=== PATIENT | male | born 1960 | race Caucasian/White ===

== ENCOUNTER 2017-03-29 07:48 | Emergency (ER) | payer BC, OTHER ==
[~2017-03-29] VITALS: Ht 167.6 cm; Wt 93.0 kg
[~2017-03-29 07:48] MED LIST: ACET50TA PO; ASPI81CH32 PO; ASPI81TA85 PO; BACT800T5 PO; CARV12.5 PO; CLIN1CAP5 PO; CORE12.5 PO; CRES20TA PO; NORCOTAB PO; OMEP40CA2 PO; PERCOCET PO; PLAV75TA38 PO; PLAVIX PO; PRAV80TA2 PO; TYLE325T5 PO; ULTR50TA PO
[2017-03-29] MEDS ORDERED: RANO5TAB PO (08:20)
[2017-03-29] MEDS ORDERED: KETOROLAC 30 MG/ML VIAL (J1885) IV ONE (08:45)
[2017-03-29] MEDS ORDERED: CLINDAMYCIN 900 MG in APPROPRIATE DILUENT 1 EA IV ONE (08:45)
[2017-03-29 09:20] LABS: BASO % 0.4 % (0.0-1.0); EOS # 0.3 K/mm3 (0.0-0.50); EOS % 2.5 % (0.0-3.0); LARGE UNSTAINED CELL # 0.2 K/mm3 (0.0-0.4); LARGE UNSTAINED CELL % 1.3 % (0.0-4.0); LYMPH # 1.2 K/mm3 (1.5-4.5); LYMPH % 9.8 % (24.0-44.0); MEAN CORPUSCULAR HEMOGLOBIN 30.9 pg (27.0-33.0); MEAN CORPUSCULAR VOLUME 90.8 fl (80.0-96.0); MONO # 0.5 K/mm3 (0.0-0.8); MONO % 3.7 % (0.0-5.0); NEUTROPHILS # 10.1 K/mm3 (1.8-7.7); NEUTROPHILS % 82.3 % (36.0-66.0); PLATELET COUNT, AUTOMATED 177 k/mm3 (150-450); RED CELL DISTRIBUTION WIDTH 13.1 % (11.5-14.5); WHITE BLOOD COUNT 12.3 K/mm3 (4.0-10.0)
[2017-03-29] MEDS ORDERED: NS 500 ML IV ONE (09:30)
[2017-03-29 09:42] LABS: ANION GAP 9 MEQ/L (8-16); BLOOD UREA NITROGEN 12 MG/DL (7-18); CALCIUM LEVEL 8.9 MG/DL (8.5-10.1); CARBON DIOXIDE LEVEL 25 MEQ/L (21-32); CHLORIDE LEVEL 101 MEQ/L (98-107); CREATININE FOR GFR 0.87 MG/DL (0.70-1.30); GLOMERULAR FILTRATION RATE > 60.0 (>56); GLUCOSE, FASTING 123 MG/DL (70-105); POTASSIUM SERUM 3.8 MEQ/L (3.5-5.1); SODIUM LEVEL 135 MEQ/L (136-145)
--- NOTE | 2017-03-29 10:15 | REP ---
Clinical: Left inguinal pain/mass. Technique: Real time kathleen scale and color evaluation using linear high frequency transducer. Findings: Directed ultrasound examination of the left inguinal canal and groin demonstrates diffuse edema and enlarged lymph nodes measuring 2.6 cm diameter as well as complex fluid collections in the subcutaneous tissue with gas measuring 1.4 x 0.8 x 1.5 cm with possible fistulous connection to a deeper collection measuring 2.6 x 1.5 x 0.4 cm. Impression: Edema and adenopathy with complex fluid collections suggesting abscess and phlegmon. Signed by Quincy Espinal MD 03/29/2017 10:07 A
[2017-03-29 12:22] VITALS: BP 115/66
[2017-03-29] MEDS ORDERED: CLEO300C2 PO (13:30)
[2017-03-29] MEDS ORDERED: NORCOTAB PO (13:30)
[2017-03-29] MEDS ORDERED: BACT800T5 PO (13:37)
--- NOTE | 2017-03-30 05:35 | CR ---
DATE OF CONSULTATION: 03/29/2017 REASON FOR CONSULTATION: Left thigh cellulitis and possible abscess. HISTORY OF PRESENT ILLNESS: The patient is a 56-year-old man who presented to the emergency department at approximately 7:48 in the morning of March 29. He presented complaining of pain in his left thigh and groin area. He reported that he had developed an infection in the left groin area beginning on or about MondayMarch 26. He described having a small pimple like lesion appear. He squeezed some small amount of yellowish matter out of it. He noticed increasing redness and swelling over the next three days. He reported having a sensation of chills on the night of March 28. He reported that he had a previous infection in the left groin area about two years ago that required an incision and drainage. He was seen in the emergency department and because of some induration he underwent an ultrasound of the area just below the inguinal ligament. This suggested a possible fluid collection and I was asked to evaluate the patient regarding the need for incision and drainage. ALLERGIES: The patient reports allergies to IODINE, PENICILLINS and PENICILLIN-RELATED MEDICATIONS. MEDICATIONS: His current medications include: - Plavix 75 mg by mouth daily - aspirin 81 mg by mouth daily - carvedilol 12.5 mg by mouth twice a day - ranolazine 500 mg by mouth twice a day PAST SURGICAL HISTORY: His surgical history is significant for a previous incision and drainage of the left upper thigh and groin area in 2014. He has had a coronary stent placed. He had an umbilical hernia repaired. PAST MEDICAL HISTORY: Medical history is significant for a history of gastroesophageal reflux. He has a history of coronary artery disease and has had stents. He has hypertension and hypercholesterolemia. SOCIAL HISTORY: The patient is a former smoker. REVIEW OF SYSTEMS: Reveals no current chest pain or palpitations. He has no shortness of breath or wheezing. He is not having any abdominal pain. Remainder of the review of systems is unremarkable. PHYSICAL EXAMINATION: Physical exam reveals a pleasant man lying quietly on the emergency room (ER) stretcher. Examination is limited to the left lower extremity. Examination shows an area approximately 25 cm in length x 15 cm in width of redness extending down the anterior thigh beginning just at the inguinal crease. About 3-4 cm below the inguinal crease, there is an area of mild induration or subcutaneous nodularity about 4 cm in length x 2.5 cm in width. With palpation just inferior to this, there is a very small pore identified in the skin from which a few small droplets of turbid yellowish fluid can be expressed. There is no fluctuance identified. Throughout the rest of the reddened area, the skin and subcutaneous tissues are much more supple and not indurated. LABORATORY DATA: The patient's laboratory studies show a white count of 12.3 with a differential showing 82% neutrophils and 10% lymphocytes. Hemoglobin is 16 with a hematocrit of 46 and the platelet count is 177,000. Chemistry profile shows a sodium of 135 and his electrolytes are otherwise unremarkable. His glucose is 123 and a C-reactive protein is 6.6. IMAGING: The ultrasound done of the thigh was interpreted as showing some edema and adenopathy with a complex fluid collection suggesting an abscess and phlegmon. Nodes were reported as being enlarged up to 2.6 cm in diameter with the fluid collection measuring 1.5 cm maximally and an additional area, possibly 2.6 cm maximally. IMPRESSION: 1. Left anterior thigh cellulitis with possible small developing abscess. 2. History of atherosclerotic coronary artery disease. 3. Hypertension. 4. Hyperlipidemia. 5. Gastroesophageal reflux. RECOMMENDATIONS The patient has not yet been treated with antibiotics. He has received a dose of intravenous (IV) clindamycin in the emergency department just now. He has a small amount of drainage coming from a small pore in the area of the left upper thigh. There is a small area of induration identified but this is not at this time fluctuant and the induration appears to be somewhat deeper. At this point I do not believe that there is a good indication for incision and drainage of this area. I advised the patient that antibiotic treatment is certainly appropriate and that he should see a significant improvement within the next 24-48 hours. It may be that as he is treated that there will be a residual area in the area of induration, which becomes more prominent or fluctuant and would benefit from incision and drainage. He certainly should avail himself of the emergency department if he notices worsening. Otherwise he can followup with his primary physician on an outpatient basis to manage this area. SHANNAN
== END 2017-03-29 13:52 | disposition home or self-care (01) ==
LOC: M ED 09:06
DX: L02.214 Cutaneous abscess of groin (principal); L03.116 Cellulitis of left lower limb; I25.10 Atherosclerotic heart disease of native coronary artery without angina pectoris; I10 Essential (primary) hypertension; E78.5 Hyperlipidemia, unspecified; K21.9 Gastro-esophageal reflux disease without esophagitis; I25.2 Old myocardial infarction; J45.909 Unspecified asthma, uncomplicated; Z95.5 Presence of coronary angioplasty implant and graft; Z87.891 Personal history of nicotine dependence; Z79.899 Other long term (current) drug therapy; Z79.02 Long term (current) use of antithrombotics/antiplatelets; Z79.82 Long term (current) use of aspirin; Z88.0 Allergy status to penicillin; Z88.8 Allergy status to other drugs, medicaments and biological substances
CPT/HCPCS: 76882; 80048; 85025; 86140; 87040; 96365; 96375; 99283; J1885

== ENCOUNTER → 2017-05-02 | Outpatient (REF) | payer OTHER ==
[~2017-05-02] MED LIST changes: +CLEO300C2 PO; +RANO5TAB PO
[2017-05-02 12:54] LABS: ANION GAP 9 MEQ/L (8-16); BLOOD UREA NITROGEN 14 MG/DL (7-18); CALCIUM LEVEL 9.1 MG/DL (8.5-10.1); CARBON DIOXIDE LEVEL 26 MEQ/L (21-32); CHLORIDE LEVEL 105 MEQ/L (98-107); CREATININE FOR GFR 0.92 MG/DL (0.70-1.30); GLOMERULAR FILTRATION RATE > 60.0 (>56); GLUCOSE, FASTING 108 MG/DL (70-105); POTASSIUM SERUM 4.2 MEQ/L (3.5-5.1); SODIUM LEVEL 140 MEQ/L (136-145)
== END ==
LOC: M SFHCPLAZ 08:48
PROVIDERS: ATTEND Family Medicine
DX: R73.03 Prediabetes (principal)

== ENCOUNTER → 2018-05-08 | Outpatient (REF) | payer OTHER ==
[2018-05-08 14:28] LABS: ESTIMATED AVERAGE GLUCOSE 114 MG/DL (60-110); HEMOGLOBIN A1c 5.6 %
== END ==
LOC: M SFHCPLAZ 11:26
DX: R73.03 Prediabetes (principal)

== ENCOUNTER → 2018-06-20 | Outpatient (CLI) | payer OTHER ==
[2018-06-20 08:41] LABS: HEMOGLOBIN 15.6 g/dl (13.5-17.5); MEAN CORPUSCULAR HEMOGLOBIN 29.9 pg (27.0-33.0); MEAN CORPUSCULAR HGB CONC 33.9 g/dl (32.0-36.5); MEAN CORPUSCULAR VOLUME 88.3 fl (80.0-96.0); PLATELET COUNT, AUTOMATED 204 10^3/uL (150-450); RED BLOOD COUNT 5.21 10^6/uL (4.30-6.10); WHITE BLOOD COUNT 7.3 10^3/uL (4.0-10.0)
== END ==
LOC: M LAB 08:19
DX: R19.5 Other fecal abnormalities (principal)
CPT/HCPCS: 85027

== ENCOUNTER 2018-07-13 08:54 | Day surgery (SDC) | payer OTHER ==
[2018-07-13] MEDS: NS 1,000 ML IV (10:09)
[2018-07-13] MEDS ORDERED: GLUCAGON FOR INJ 1 MG VIAL (J1610) As Ordered (11:53)
[2018-07-13] MEDS ORDERED: LIDOCAINE 2% INJ 100 MG/5 ML SDV (FOR ANES.) As Ordered (11:53)
[2018-07-13] MEDS ORDERED: PROPOFOL 200 MG/20 ML VIAL As Ordered (11:53)
== END 2018-07-13 12:12 | disposition home or self-care (01) ==
LOC: M OPP 08:54
DX: R19.5 Other fecal abnormalities (principal); D12.5 Benign neoplasm of sigmoid colon; K57.30 Diverticulosis of large intestine without perforation or abscess without bleeding; I10 Essential (primary) hypertension; Z95.5 Presence of coronary angioplasty implant and graft; I25.10 Atherosclerotic heart disease of native coronary artery without angina pectoris; I25.2 Old myocardial infarction; E78.5 Hyperlipidemia, unspecified; K21.9 Gastro-esophageal reflux disease without esophagitis; R12 Heartburn; G43.909 Migraine, unspecified, not intractable, without status migrainosus; J45.909 Unspecified asthma, uncomplicated; G47.8 Other sleep disorders; G47.30 Sleep apnea, unspecified; R06.83 Snoring; Z87.891 Personal history of nicotine dependence; F12.10 Cannabis abuse, uncomplicated; Z88.0 Allergy status to penicillin; Z88.3 Allergy status to other anti-infective agents; Z79.82 Long term (current) use of aspirin; Z79.899 Other long term (current) drug therapy; Z79.02 Long term (current) use of antithrombotics/antiplatelets; Z80.7 Family history of other malignant neoplasms of lymphoid, hematopoietic and related tissues
CPT/HCPCS: 45385

== ENCOUNTER → 2018-12-18 | Outpatient (REF) | payer OTHER ==
[~2018-12-18] MED LIST changes: +CLIN150C14 PO; -CLIN1CAP5 PO; +PLAV1TAB2 PO; -PLAV75TA38 PO; +REPA1INJ SC; -ULTR50TA PO; +ULTR50TA8 PO
== END ==
LOC: M LAB REF 17:33
PROVIDERS: ATTEND Podiatrist Foot & Ankle Surgery
DX: L03.115 Cellulitis of right lower limb (principal)

== ENCOUNTER 2019-01-02 09:27 | Day surgery (SDC) | payer OTHER ==
[~2019-01-02] VITALS: Ht 167.6 cm; Wt 91.2 kg
[~2019-01-02 09:27] MED LIST changes: +CLINDAMYCIN 600 MG in APPROPRIATE DILUENT 1 EA IV ONE; +LOSA25TA14 PO; +LR 1,000 ML IV ONE
[2019-01-02 09:59] LABS: HEMATOCRIT 46.1 % (42.0-52.0); HEMOGLOBIN 15.3 g/dl (13.5-17.5); MEAN CORPUSCULAR HEMOGLOBIN 29.8 pg (27.0-33.0); MEAN CORPUSCULAR HGB CONC 33.2 g/dl (32.0-36.5); MEAN CORPUSCULAR VOLUME 89.9 fl (80.0-96.0); PLATELET COUNT, AUTOMATED 239 10^3/uL (150-450); RED BLOOD COUNT 5.13 10^6/uL (4.30-6.10); WHITE BLOOD COUNT 8.5 10^3/uL (4.0-10.0)
[2019-01-02] MEDS ORDERED: PROPOFOL 200 MG/20 ML VIAL As Ordered ONE (11:01)
[2019-01-02] MEDS ORDERED: LIDOCAINE 2% INJ 100 MG/5 ML SDV (FOR ANES.) As Ordered ONE (11:01)
[2019-01-02] MEDS ORDERED: KETAMINE HCL 200 MG/20 ML VIAL As Ordered ONE (11:02)
[2019-01-02] MEDS ORDERED: ONDANSETRON 4MG/2ML VIAL (J2405) As Ordered ONE (11:02)
[2019-01-02] MEDS ORDERED: KETOROLAC 60 MG/2 ML VIAL (J1885) As Ordered ONE (11:02)
[2019-01-02] MEDS ORDERED: fentaNYL 100 MCG/2 ML INJECTION (J3010) As Ordered ONE (11:18)
[2019-01-02] MEDS ORDERED: MIDAZOLAM INJ 2 MG/2 ML VIAL (J2250) As Ordered ONE (11:18)
[2019-01-02] MEDS ORDERED: LIDOCAINE 1% SDV INJ 30 ML VIAL As Ordered ONE (12:37)
[2019-01-02] MEDS ORDERED: BUPIVACAINE HCL 0.5% 30 ML VIAL As Ordered ONE (12:38)
[2019-01-02] MEDS ORDERED: dexameTHASONE 4 MG/ML 1ML VIAL (J1100) As Ordered ONE (12:38)
[2019-01-02] MEDS ORDERED: HYDR-3713 PO (13:53)
[2019-01-02] MEDS ORDERED: LR 1,000 ML IV SCH (14:15)
[2019-01-02] MEDS ORDERED: PERCOCET 5MG/325MG TAB PO PRN (14:15)
[2019-01-02 14:25] VITALS: BP 129/75
--- NOTE | 2019-01-03 09:35 | RO ---
DATE OF PROCEDURE: 01/02/2019 PREOPERATIVE DIAGNOSIS: Right foot infected soft tissue mass. POSTOPERATIVE DIAGNOSIS: Right foot infected soft tissue mass. PROCEDURE: Right foot incision and drainage and excision of soft tissue mass. SURGEON: Valdo Haskins DPM EDGE POLISHER: ANESTHESIA: Monitored anesthesia care (MAC), preop injection of 17 mL of 1:1 mixture of 1% lidocaine plain, 0.5% Marcaine plain. ESTIMATED BLOOD LOSS: Minimal. MATERIALS: #3-0 nylon. INJECTABLES: 6 mL of 1% lidocaine plain. SPECIMENS: Include inclusion cyst right foot and right foot soft tissue mass. COMPLICATIONS: None. CONDITION: Stable. Jaydon Pinto is a 58-year-old male who [facility] an infected soft tissue mass of his right foot. He states the mass has been there approximately 20 years. Recently he was seen in my office right after the mass ruptured and became infected. He has been being treated with antibiotics and wound dressings. Decision was made to bring him to the operating room for irrigation and drainage and for excision of the mass. The patient's site and side were identified and marked in preop holding area. Consent was reviewed and obtained. Risks, complications and alternatives to the procedure were explained to the patient and all questions were answered. DESCRIPTION OF PROCEDURE: Patient was brought to the operating room and placed on the operating room table in supine position. Monitored anesthesia care was delivered by the anesthesia team. Preop injection of 17 mL of 1:1 mixture of 1% lidocaine plain and 0.5% Marcaine plain were injected into the right foot. The right foot was prepped and draped in a normal sterile fashion. Tourniquet was applied to the ankle and inflated to 225 mmHg. The patient received clindamycin preoperatively. A dorsal incision was made over the wound from the dorsal foot between he third and fourth toes. This was carried through with #15 blade. Immediately there was yadav spongy material extending approximately from the fifth interspace toward the second interspace. This was superficial to the extensor tendons and neurovascular structures to the toes. This was excised using a 15 blade. The site was irrigated with normal saline. There appeared to be a soft tissue mass arising more medially. A dorsal incision was made over the second interspace and carried through with a 15 blade. A capsulated mass was identified. This was dissected free with 15 blade and tenotomy scissors. On the inside there was yellow foul smelling paste like material. This was excised and sent for pathology as well, suspecting inclusion cyst. The site was irrigated with normal saline. No further purulent drainage or mass were noted. Bovie was used to cauterize bleeding vessels. Incisions were repaired with #3-0 nylon. Sterile compressive dressings were applied and tourniquet was deflated. The patient was brought to the postanesthesia care unit (PACU) with vital signs stable and neurovascular status intact. He will be weightbearing as tolerated. Follow-up in the office in two days.
== END 2019-01-02 14:37 | disposition home or self-care (01) ==
LOC: M SDC 09:27
PROVIDERS: ATTEND Podiatrist Foot & Ankle Surgery
DX: M79.9 Soft tissue disorder, unspecified (principal); R22.41 Localized swelling, mass and lump, right lower limb; L72.0 Epidermal cyst; I10 Essential (primary) hypertension; I25.2 Old myocardial infarction; E78.00 Pure hypercholesterolemia, unspecified; J45.909 Unspecified asthma, uncomplicated; Z88.0 Allergy status to penicillin; Z91.048 Other nonmedicinal substance allergy status; Z79.899 Other long term (current) drug therapy; Z79.82 Long term (current) use of aspirin; Z95.5 Presence of coronary angioplasty implant and graft
CPT/HCPCS: 28039; 36415; 85027; 88304; 88307; J1885; J2250; J2405; J3010

== ENCOUNTER 2020-06-22 07:10 | Day surgery (SDC) | payer OTHER ==
[~2020-06-22 07:10] MED LIST changes: -ACET50TA PO; -ASPI81CH32 PO; +ASPI81CH33 PO; -CLINDAMYCIN 600 MG in APPROPRIATE DILUENT 1 EA IV ONE; +CYCLOPENTOLATE 2% OPHTH SOLN 2ML BTL As Ordered ONE; +CYCLOPENTOLATE 2% OPHTH SOLN 2ML BTL ONE; +HYDR-3713 PO; +HYDR-3715 PO; +LIDOCAINE 3.5 % 1ML OPHTH TOPICAL GEL As Ordered ONE; +LIDOCAINE 3.5 % 1ML OPHTH TOPICAL GEL ONE; -LR 1,000 ML IV ONE; +MAPA500T17 PO; -NORCOTAB PO; +OFLOXACIN 0.3 % (OCUFLOX) OPTH SOL 5ML As Ordered ONE; +OFLOXACIN 0.3 % (OCUFLOX) OPTH SOL 5ML ONE; +PHENYLEPHRINE 2.5% OPHTH SOL 2ML As Ordered ONE; +PHENYLEPHRINE 2.5% OPHTH SOL 2ML ONE; +RANO500T7 PO; -RANO5TAB PO; +REPA140I2 SC; -REPA1INJ SC; +TROPICAMIDE 1% OPHTH SOLN 2ML As Ordered ONE; +TROPICAMIDE 1% OPHTH SOLN 2ML ONE
[2020-06-22] MEDS ORDERED: CARVedilol 6.25 MG TAB ONE (07:25)
[2020-06-22] MEDS ORDERED: CARVedilol 6.25 MG TAB As Ordered ONE (07:25)
[2020-06-22] MEDS ORDERED: HEALON DUET PRO(HEALON 10MG/ML 0.55ML & HEALON ENDOCOAT 30MG/ML 0.85ML) As Ordered ONE (07:40)
[2020-06-22] MEDS ORDERED: LIDOCAINE 1% SDV 5ML VIAL As Ordered ONE (07:40)
[2020-06-22] MEDS ORDERED: BALANCED SALT IRRIGATION SOLUTION 500ML BAG (FOR OR EYE MACHINE) As Ordered ONE (07:40)
[2020-06-22] MEDS ORDERED: MIDAZOLAM INJ 2MG/2ML VIAL (J2250 PER 1MG) As Ordered ONE (08:00)
[2020-06-22] MEDS ORDERED: fentaNYL 100 MCG/2 ML INJECTION (J3010) As Ordered ONE (08:01)
[2020-06-22] MEDS ORDERED: acetaZOLAMIDE 500 MG ER CAP As Ordered ONE (08:45)
[2020-06-22] MEDS ORDERED: acetaZOLAMIDE 500 MG ER CAP ONE (08:45)
[2020-06-22] MEDS ORDERED: ceFAZolin 2 GM/D5W 50 ML IV BAG (J0690 PER 500MG) ONE (11:44)
[2020-06-24] MEDS ORDERED: ceFAZolin 2 GM/D5W 50 ML IV BAG (J0690 PER 500MG) As Ordered ONE (11:44)
[2020-06-24] MEDS ORDERED: BUPIVACAINE/EPIN 0.5% 30 ML VIAL As Ordered ONE (12:31)
[2020-06-24] MEDS ORDERED: LIDOCAINE 2% MDV 20ML VIAL As Ordered ONE (12:31)
[2020-06-24] MEDS ORDERED: BACITRACIN OINTMENT 30GM TUBE As Ordered ONE (14:17)
--- NOTE | 2020-08-21 08:13 | RO ---
DATE OF OPERATION: 06/22/2020 PREOPERATIVE DIAGNOSIS: Age-related nuclear cataract, right eye. POSTOPERATIVE DIAGNOSIS: Age-related nuclear cataract, right eye. PROCEDURE PERFORMED: Phacoemulsification of posterior chamber with intraocular lens implantation right eye. ANESTHESIA: Topical sedation. LENS USED: [id number]. A 17.5 diopter DETAILS OF PROCEDURE: The eye was prepped and draped in the usual fashion. Lid speculum was placed in the lid. A stab incision was made to the anterior chamber with a superblade. 1% non-preserved lidocaine was instilled and viscoelastic instilled. The eye was refixated, and a 2.4 mm Keratome made a clear corneal and temporal limbal incision. The lens was then hydrodissected, and then it was grooved in two meridians at the phacoemulsification. The lens was scrapped into four quadrants. Each quadrant was in good phacoemulsification. The remaining cortex was removed with I&A unit. The capsular bag was refilled with viscoelastic and the posterior chamber and intraocular lens were inserted into the capsular bag with no difficulty. Any remaining viscoelastic was removed with the I&A, and the wound was hydrated and balanced salt and ceftriaxone were instilled. The patient tolerated the procedure well, and went to the recovery room in stable condition. SHANNAN
== END 2020-06-22 09:15 | disposition home or self-care (01) ==
LOC: M SDC 07:10
PROVIDERS: ATTEND Ophthalmology
DX: H25.11 Age-related nuclear cataract, right eye (principal); I25.2 Old myocardial infarction; I10 Essential (primary) hypertension; J45.909 Unspecified asthma, uncomplicated; Z87.891 Personal history of nicotine dependence; Z88.0 Allergy status to penicillin; Z79.899 Other long term (current) drug therapy; Z98.61 Coronary angioplasty status; Z79.01 Long term (current) use of anticoagulants
CPT/HCPCS: 66984; J0690; J2250; J3010

== ENCOUNTER 2022-02-04 12:10 | Emergency (ER) | payer OTHER ==
[~2022-02-04] VITALS: Ht 167.6 cm; Wt 90.1 kg
[~2022-02-04 12:10] MED LIST changes: +BENZ200C70 PO; -CLIN150C14 PO; +CLIN150C17 PO; -CYCLOPENTOLATE 2% OPHTH SOLN 2ML BTL As Ordered ONE; -CYCLOPENTOLATE 2% OPHTH SOLN 2ML BTL ONE; +LIDO2SOL17 PO; -LIDOCAINE 3.5 % 1ML OPHTH TOPICAL GEL As Ordered ONE; -LIDOCAINE 3.5 % 1ML OPHTH TOPICAL GEL ONE; +LOSA25TA13 PO; -LOSA25TA14 PO; -OFLOXACIN 0.3 % (OCUFLOX) OPTH SOL 5ML As Ordered ONE; -OFLOXACIN 0.3 % (OCUFLOX) OPTH SOL 5ML ONE; -PHENYLEPHRINE 2.5% OPHTH SOL 2ML As Ordered ONE; -PHENYLEPHRINE 2.5% OPHTH SOL 2ML ONE; +PRED20TA PO; +PROAAER10 INH; -TROPICAMIDE 1% OPHTH SOLN 2ML As Ordered ONE; -TROPICAMIDE 1% OPHTH SOLN 2ML ONE
[2022-02-04 13:22] LABS: BASO # 0.1 10^3/uL (0.0-0.2); BASO % 0.6 % (0.0-1.0); EOS # 0.2 10^3/uL (0.0-0.5); EOS % 1.4 % (0.0-3.0); HEMATOCRIT 44.2 % (42.0-52.0); HEMOGLOBIN 14.4 g/dl (13.5-17.5); LYMPH # 1.8 10^3/uL (1.5-5.0); LYMPH % 14.2 % (24.0-44.0); MEAN CORPUSCULAR HEMOGLOBIN 28.5 pg (27.0-33.0); MEAN CORPUSCULAR HGB CONC 32.6 g/dl (32.0-36.5); MEAN CORPUSCULAR VOLUME 87.5 fl (80.0-96.0); MONO # 0.8 10^3/uL (0.0-0.8); MONO % 6.5 % (2.0-8.0); NEUTROPHILS # 9.8 10^3/uL (1.5-8.5); NEUTROPHILS % 76.9 % (36.0-66.0); PLATELET COUNT, AUTOMATED 225 10^3/uL (150-450); RED BLOOD COUNT 5.05 10^6/uL (4.30-6.10); WHITE BLOOD COUNT 12.7 10^3/uL (4.0-10.0)
[2022-02-04] MEDS ORDERED: ceFAZolin SOD 2 GM in IV 1 EA IV ONE (13:55)
[2022-02-04] MEDS ORDERED: ACETAMINOPHEN *IV* 1,000 MG in IV 1 EA IV ONE (13:55)
[2022-02-04] MEDS ORDERED: NS 500 ML IV ONE (13:55)
[2022-02-04 14:09] LABS: ERYTHROCYTE SEDIMENTATION RATE 44 mm/hr (0-20)
[2022-02-04] MEDS ORDERED: CEPH500C PO (16:09)
[2022-02-04 16:31] VITALS: BP 136/79
== END 2022-02-04 16:35 | disposition home or self-care (01) ==
LOC: M ED 12:10
DX: L03.211 Cellulitis of face (principal); Z88.0 Allergy status to penicillin; Z88.8 Allergy status to other drugs, medicaments and biological substances
CPT/HCPCS: 36415; 70486; 80047; 85025; 85652; 86140; 96361; 96374; 99284; J0131; J0690

== ENCOUNTER → 2022-05-16 | Outpatient (CLI) | payer OTHER ==
[~2022-05-16] MED LIST changes: +CEPH500C PO
== END ==
LOC: M LAB 10:09
PROVIDERS: ATTEND Nurse Practitioner Family
DX: L73.2 Hidradenitis suppurativa (principal)

== ENCOUNTER → 2022-09-02 | Outpatient (REF) | payer OTHER | LOC: M SFHCLERA 16:50 | PROVIDERS: ATTEND Student in an Organized Health Care Education/Training Program | DX: J06.9 Acute upper respiratory infection, unspecified (principal) ==

== ENCOUNTER → 2023-05-10 | Outpatient (CLI) | payer OTHER ==
[~2023-05-10] MED LIST changes: +CLOP75TA99 PO; +HUMI40KI2 SC; +LIDO15SO PO; -LIDO2SOL17 PO; +NITR4TASL SL; -PLAV1TAB2 PO
== END ==
LOC: M RAD 11:57
PROVIDERS: ATTEND Surgery
DX: D37.030 Neoplasm of uncertain behavior of the parotid salivary glands (principal)

== ENCOUNTER → 2023-05-10 | Outpatient (CLI) | payer OTHER | LOC: M RAD 15:31 | PROVIDERS: ATTEND Surgery | DX: D37.030 Neoplasm of uncertain behavior of the parotid salivary glands (principal) ==

== ENCOUNTER → 2023-05-12 | Outpatient (CLI) | payer OTHER ==
[~2023-05-12] MED LIST changes: +LIDOCAINE 1% MDV 20ML VIAL As Ordered ONE
[2023-05-12 08:25] VITALS: TEMP 97.1
[2023-05-12 09:02] VITALS: BP 119/79; O2SAT 96
== END ==
LOC: M IRPRO 08:13
PROVIDERS: ATTEND Surgery
DX: D37.030 Neoplasm of uncertain behavior of the parotid salivary glands (principal)

== ENCOUNTER → 2023-05-19 | Outpatient (REF) | payer OTHER ==
[~2023-05-19] MED LIST changes: -LIDOCAINE 1% MDV 20ML VIAL As Ordered ONE
== END ==
LOC: M LAB REF 21:53
PROVIDERS: ATTEND Otolaryngology
DX: L72.3 Sebaceous cyst (principal)

== ENCOUNTER → 2023-06-13 | Outpatient (CLI) | payer OTHER ==
[2023-06-13 07:42] LABS: ALBUMIN 3.3 G/DL (3.2-5.2); ALKALINE PHOSPHATASE 97 U/L (46-116); ALT/SGPT 12 U/L (7.0-40); AST/SGOT 13 U/L (<34); BILIRUBIN,TOTAL 0.2 MG/DL (0.3-1.2); BLOOD UREA NITROGEN 23 MG/DL (9-23); CALCIUM LEVEL 9.2 MG/DL (8.3-10.6); CARBON DIOXIDE LEVEL 25 MMOL/L (20-31); CHLORIDE LEVEL 103 MMOL/L (98-107); CHOLESTEROL LEVEL 135 MG/DL (<200); CHOLESTEROL RISK RATIO 4.25 (<5); CREATININE FOR GFR 0.72 MG/DL (0.70-1.30); GLOMERULAR FILTRATION RATE > 60.0 (>49); GLUCOSE, FASTING 132 MG/DL (74-106); HDL CHOLESTEROL 31.7 MG/DL (>40); LDL CHOLESTEROL 26.5 MG/DL (<100); NON-HDL-C 103.3 MG/DL; POTASSIUM SERUM 4.1 MMOL/L (3.5-5.1); SODIUM LEVEL 137 MMOL/L (136-145); TOTAL PROTEIN 7.5 G/DL (5.7-8.2); TRIGLYCERIDES LEVEL 384 MG/DL (<150)
[2023-06-13 07:54] LABS: HEMOGLOBIN A1c 5.9 % (4.0-6.0)
== END ==
LOC: M LAB 06:05
PROVIDERS: ATTEND Family Medicine
DX: E78.5 Hyperlipidemia, unspecified (principal); R73.03 Prediabetes; E66.9 Obesity, unspecified

== ENCOUNTER → 2023-06-13 | Outpatient (CLI) | payer OTHER | LOC: M LAB 06:02 | PROVIDERS: ATTEND Nurse Practitioner Family | DX: L73.2 Hidradenitis suppurativa (principal) ==

== ENCOUNTER 2023-07-24 22:16 | Emergency (ER) | payer OTHER ==
[~2023-07-24] VITALS: Ht 167.6 cm; Wt 87.6 kg
[2023-07-24 22:18] VITALS: BP 123/69; TEMP 96.7; O2SAT 96
== END 2023-07-25 00:05 | disposition left against medical advice (07) ==
LOC: M ED 22:16
DX: Z53.21 Procedure and treatment not carried out due to patient leaving prior to being seen by health care provider (principal)

== ENCOUNTER → 2023-07-24 | Outpatient (CLI) | payer OTHER ==
[~2023-07-24] MED LIST changes: +RANO500T2 PO
== END ==
LOC: M RAD 17:36
PROVIDERS: ATTEND Family Medicine
DX: F17.211 Nicotine dependence, cigarettes, in remission (principal)

== ENCOUNTER → 2023-10-25 | Outpatient (REF) | payer OTHER | LOC: M SFHCDERM 17:55 | PROVIDERS: ATTEND Nurse Practitioner Family | DX: L72.9 Follicular cyst of the skin and subcutaneous tissue, unspecified (principal) ==

== ENCOUNTER 2023-11-19 13:38 | Emergency (ER) | payer OTHER ==
[~2023-11-19] VITALS: Ht 167.6 cm; Wt 92.1 kg
[2023-11-19 14:28] LABS: BASO # 0.1 10^3/uL (0.0-0.2); BASO % 0.6 % (0.0-1.0); EOS # 0.1 10^3/uL (0.0-0.5); EOS % 1.1 % (0.0-3.0); HEMATOCRIT 42.3 % (42.0-52.0); LYMPH # 2.4 10^3/uL (1.5-5.0); LYMPH % 21.1 % (24.0-44.0); MEAN CORPUSCULAR HEMOGLOBIN 28.5 pg (27.0-33.0); MEAN CORPUSCULAR HGB CONC 33.1 g/dl (32.0-36.5); MONO # 0.7 10^3/uL (0.0-0.8); MONO % 6.3 % (2.0-8.0); NEUTROPHILS # 8.2 10^3/uL (1.5-8.5); NEUTROPHILS % 70.6 % (36.0-66.0); PLATELET COUNT, AUTOMATED 235 10^3/uL (150-450); RED BLOOD COUNT 4.92 10^6/uL (4.30-6.10); WHITE BLOOD COUNT 11.6 10^3/uL (4.0-10.0)
[2023-11-19] MEDS ORDERED: ASPIRIN 81MG CHEW TABLET PO ONE (14:35)
[2023-11-19] MEDS: NITROGLYCERIN 0.4MG SUBL TABLET SL PRN ×2 (14:38→15:07)
[2023-11-19 15:00] LABS: ALBUMIN 3.4 G/DL (3.2-5.2); ALKALINE PHOSPHATASE 95 U/L (46-116); ALT/SGPT 22 U/L (7.0-40); AST/SGOT 39 U/L (<34); BILIRUBIN,DIRECT 0.2 MG/DL (<0.4); BILIRUBIN,TOTAL 0.4 MG/DL (0.3-1.2); BLOOD UREA NITROGEN 15 MG/DL (9-23); CALCIUM LEVEL 8.9 MG/DL (8.3-10.6); CARBON DIOXIDE LEVEL 23 MMOL/L (20-31); CHLORIDE LEVEL 105 MMOL/L (98-107); CK-MB VALUE MASS < 1.0 NG/ML (<3.6); CPK CREATINE PHOSPHOKINASE 96 U/L (46-171); CREATININE FOR GFR 0.49 MG/DL (0.70-1.30); GLOMERULAR FILTRATION RATE > 60.0 (>49); GLUCOSE, FASTING 89 MG/DL (74-106); MB/CK RELATIVE INDEX 1.04 (< OR =4); POTASSIUM SERUM 4.8 MMOL/L (3.5-5.1); SODIUM LEVEL 135 MMOL/L (136-145); TOTAL PROTEIN 7.9 G/DL (5.7-8.2)
[2023-11-19 15:07] VITALS: BP 129/76
[2023-11-19] MEDS ORDERED: HEPARIN DRIP 25,000 UNITS in IV 1 EA IV SCH (15:25)
[2023-11-19] MEDS ORDERED: CLOPIDOGREL 300 MG TAB (PLAVIX) PO STA (15:25)
[2023-11-19] MEDS ORDERED: HEPARIN SOD (PORCINE) 5000UNITS/ML 1ML VIAL/SYRINGE IV ONE (15:25)
[2023-11-19 15:39] LABS: PARTIAL THROMBOPLASTIN TIME 30.6 SECONDS (24.8-34.2); PROTHROMBIN TIME 12.9 SECONDS (12.5-14.5)
[2023-11-19 15:44] VITALS: BP 116/78; TEMP 97.6; O2SAT 96
[2023-11-19 15:44] LABS: CK-MB VALUE MASS < 1.0 NG/ML (<3.6)
[2023-11-19 15:46] LABS: CPK CREATINE PHOSPHOKINASE 80 U/L (46-171); MB/CK RELATIVE INDEX 1.25 (< OR =4)
== END 2023-11-19 15:49 | disposition short-term general hospital (02) ==
LOC: M ED 13:38
DX: I21.3 ST elevation (STEMI) myocardial infarction of unspecified site (principal); I25.10 Atherosclerotic heart disease of native coronary artery without angina pectoris; I25.2 Old myocardial infarction; E78.5 Hyperlipidemia, unspecified; Z95.5 Presence of coronary angioplasty implant and graft; Z87.891 Personal history of nicotine dependence; Z79.82 Long term (current) use of aspirin; Z79.899 Other long term (current) drug therapy; Z88.0 Allergy status to penicillin; Z88.3 Allergy status to other anti-infective agents

== ENCOUNTER 2023-11-24 10:47 | Emergency (ER) | payer OTHER ==
[~2023-11-24] VITALS: Ht 167.6 cm; Wt 91.0 kg
[2023-11-24] MEDS ORDERED: CLOP75TA99 PO (10:55)
[2023-11-24 11:43] LABS: BASO # 0.1 10^3/uL (0.0-0.2); BASO % 0.7 % (0.0-1.0); EOS # 0.2 10^3/uL (0.0-0.5); EOS % 2.4 % (0.0-3.0); HEMOGLOBIN 13.8 g/dl (13.5-17.5); LYMPH % 22.8 % (24.0-44.0); MEAN CORPUSCULAR HEMOGLOBIN 28.3 pg (27.0-33.0); MEAN CORPUSCULAR HGB CONC 32.9 g/dl (32.0-36.5); MEAN CORPUSCULAR VOLUME 86.2 fl (80.0-96.0); MONO # 0.6 10^3/uL (0.0-0.8); MONO % 6.5 % (2.0-8.0); NEUTROPHILS % 67.3 % (36.0-66.0); PLATELET COUNT, AUTOMATED 191 10^3/uL (150-450); RED BLOOD COUNT 4.87 10^6/uL (4.30-6.10); WHITE BLOOD COUNT 8.9 10^3/uL (4.0-10.0)
[2023-11-24 12:09] LABS: CK-MB VALUE MASS < 1.0 NG/ML (<3.6); LIPASE 89 U/L (12-53)
[2023-11-24 12:11] LABS: ALBUMIN 3.2 G/DL (3.2-5.2); ALKALINE PHOSPHATASE 92 U/L (46-116); ALT/SGPT 25 U/L (7.0-40); AST/SGOT 33 U/L (<34); BILIRUBIN,DIRECT 0.1 MG/DL (<0.4); BILIRUBIN,TOTAL 0.5 MG/DL (0.3-1.2); BLOOD UREA NITROGEN 14 MG/DL (9-23); CALCIUM LEVEL 8.6 MG/DL (8.3-10.6); CARBON DIOXIDE LEVEL 25 MMOL/L (20-31); CHLORIDE LEVEL 104 MMOL/L (98-107); CREATININE FOR GFR 0.55 MG/DL (0.70-1.30); GLOMERULAR FILTRATION RATE > 60.0 (>49); GLUCOSE, FASTING 111 MG/DL (74-106); POTASSIUM SERUM 4.8 MMOL/L (3.5-5.1); SODIUM LEVEL 133 MMOL/L (136-145); TOTAL PROTEIN 7.5 G/DL (5.7-8.2)
[2023-11-24 12:13] LABS: THYROID STIMULATING HORMONE 1.356 uIU/ML (0.55-4.78)
[2023-11-24 12:19] LABS: CPK CREATINE PHOSPHOKINASE 61 U/L (46-171); MB/CK RELATIVE INDEX 1.63 (< OR =4)
[2023-11-24 13:12] LABS: CK-MB VALUE MASS < 1.0 NG/ML (<3.6)
[2023-11-24 13:15] LABS: CPK CREATINE PHOSPHOKINASE 53 U/L (46-171); MB/CK RELATIVE INDEX 1.88 (< OR =4)
[2023-11-24 15:51] VITALS: BP 118/68; TEMP 98.2; O2SAT 96
== END 2023-11-24 15:53 | disposition home or self-care (01) ==
LOC: M ED 10:47
DX: M25.512 Pain in left shoulder (principal); I25.10 Atherosclerotic heart disease of native coronary artery without angina pectoris; Z86.79 Personal history of other diseases of the circulatory system; Z95.5 Presence of coronary angioplasty implant and graft; Z87.891 Personal history of nicotine dependence; Z79.82 Long term (current) use of aspirin; Z79.02 Long term (current) use of antithrombotics/antiplatelets; Z88.0 Allergy status to penicillin; Z88.3 Allergy status to other anti-infective agents

== ENCOUNTER → 2024-03-15 | Outpatient (REF) | payer OTHER ==
[~2024-03-15] MED LIST changes: -LIDO15SO PO; +LIDO15SO8 PO
== END ==
LOC: M SFHCDERM 17:30
PROVIDERS: ATTEND Nurse Practitioner Family
DX: L73.2 Hidradenitis suppurativa (principal)

== ENCOUNTER → 2024-07-26 | Outpatient (CLI) | payer OTHER ==
[2024-07-26 13:31] LABS: BASO # 0.1 10^3/uL (0.0-0.2); BASO % 0.8 % (0.0-1.0); EOS # 0.2 10^3/uL (0.0-0.5); EOS % 2.4 % (0.0-3.0); HEMATOCRIT 40.2 % (42.0-52.0); HEMOGLOBIN 13.5 g/dl (13.5-17.5); LYMPH # 1.9 10^3/uL (1.5-5.0); LYMPH % 18.9 % (24.0-44.0); MEAN CORPUSCULAR HEMOGLOBIN 30.3 pg (27.0-33.0); MEAN CORPUSCULAR HGB CONC 33.6 g/dl (32.0-36.5); MEAN CORPUSCULAR VOLUME 90.3 fl (80.0-96.0); MONO # 0.8 10^3/uL (0.0-0.8); MONO % 8.2 % (2.0-8.0); NEUTROPHILS % 69.4 % (36.0-66.0); PLATELET COUNT, AUTOMATED 224 10^3/uL (150-450); RED BLOOD COUNT 4.45 10^6/uL (4.30-6.10); WHITE BLOOD COUNT 10.1 10^3/uL (4.0-10.0)
[2024-07-26 14:04] LABS: ALBUMIN 3.2 G/DL (3.2-5.2); ALKALINE PHOSPHATASE 104 U/L (46-116); ALT/SGPT 14 U/L (7.0-40); AST/SGOT 9 U/L (<34); BILIRUBIN,TOTAL 0.2 MG/DL (0.3-1.2); BLOOD UREA NITROGEN 14 MG/DL (9-23); CALCIUM LEVEL 8.8 MG/DL (8.3-10.6); CARBON DIOXIDE LEVEL 26 MMOL/L (20-31); CHLORIDE LEVEL 105 MMOL/L (98-107); CHOLESTEROL LEVEL 120 MG/DL (<200); CHOLESTEROL RISK RATIO 2.78 (<5); GLOMERULAR FILTRATION RATE > 60.0 (>49); GLUCOSE, FASTING 88 MG/DL (74-106); HDL CHOLESTEROL 43.1 MG/DL (>40); LDL CHOLESTEROL 39.7 MG/DL (<100); NON-HDL-C 76.9 MG/DL; POTASSIUM SERUM 4.3 MMOL/L (3.5-5.1); SODIUM LEVEL 135 MMOL/L (136-145); TOTAL PROTEIN 7.3 G/DL (5.7-8.2); TRIGLYCERIDES LEVEL 186 MG/DL (<150)
== END ==
LOC: M LAB 12:23
PROVIDERS: ATTEND Internal Medicine Cardiovascular Disease
DX: I25.10 Atherosclerotic heart disease of native coronary artery without angina pectoris (principal); I25.83 Coronary atherosclerosis due to lipid rich plaque; E78.5 Hyperlipidemia, unspecified; I10 Essential (primary) hypertension

== ENCOUNTER → 2024-12-10 | Outpatient (CLI) | payer OTHER | LOC: M RAD 14:56 | PROVIDERS: ATTEND Physician Assistant | DX: Z87.891 Personal history of nicotine dependence (principal) ==

== ENCOUNTER → 2025-05-30 | Outpatient (CLI) | payer OTHER ==
[~2025-05-30] MED LIST changes: +PRAV80TA75 PO
[2025-05-30 09:36] LABS: CHOLESTEROL LEVEL 143.0 MG/DL (<200); CHOLESTEROL RISK RATIO 3.31 (<5); LDL CHOLESTEROL 49.8 MG/DL (<100); NON-HDL-C 99.8 MG/DL; TRIGLYCERIDES LEVEL 250.0 MG/DL (<150)
== END ==
LOC: M LAB 08:09
PROVIDERS: ATTEND Nurse Practitioner Acute Care
DX: I25.10 Atherosclerotic heart disease of native coronary artery without angina pectoris (principal)

== ENCOUNTER → 2025-06-11 | Outpatient (REF) | payer OTHER ==
[2025-06-11 18:36] LABS: BASO # 0.1 10^3/uL (0.0-0.2); BASO % 0.8 % (0.0-1.0); EOS # 0.3 10^3/uL (0.0-0.5); EOS % 3.0 % (0.0-3.0); LYMPH # 2.2 10^3/uL (1.5-5.0); LYMPH % 24.1 % (24.0-44.0); MONO # 0.7 10^3/uL (0.0-0.8); MONO % 7.8 % (2.0-8.0); NEUTROPHILS # 5.9 10^3/uL (1.5-8.5); NEUTROPHILS % 63.8 % (36.0-66.0); PLATELET COUNT, AUTOMATED 237 10^3/uL (150-450)
[2025-06-11 18:42] LABS: ALT/SGPT 19 U/L (7.0-40); AST/SGOT 19 U/L (<34); CALCIUM LEVEL 8.8 MG/DL (8.3-10.6); CARBON DIOXIDE LEVEL 22 MMOL/L (20-31); CHLORIDE LEVEL 104 MMOL/L (98-107); CREATININE FOR GFR 0.73 MG/DL (0.70-1.30); GLOMERULAR FILTRATION RATE > 90.0 (>49); POTASSIUM SERUM 4.4 MMOL/L (3.5-5.1); PSA SCREENING 1.34 NG/ML (< 4.00); SODIUM LEVEL 138 MMOL/L (136-145)
[2025-06-11 19:04] LABS: ESTIMATED AVERAGE GLUCOSE 117.0 MG/DL (60-110)
== END ==
LOC: M SFHCLERA 14:20
PROVIDERS: ATTEND Family Medicine
DX: Z00.00 Encounter for general adult medical examination without abnormal findings (principal); Z12.5 Encounter for screening for malignant neoplasm of prostate